=== PATIENT | male | born 1940 | race Caucasian/White ===

== ENCOUNTER 2016-10-08 10:45 | Observation (INO) | payer OTHER, BC ==
[~2016-10-08] VITALS: Ht 180.3 cm; Wt 84.5 kg
[2016-10-08 12:11] LABS: EOSINOPHIL (%) 2.2 % (0-5); EOSINOPHIL COUNT 0.1 K/uL (0-0.3); HEMATOCRIT 37.6 % (38.0-50.0); IMMATURE GRANULOCYTE (%) 0.4 % (0.0-0.7); INSTRUMENT ABS NEUTROPHIL CT 3.5 K/uL; LYMPHOCYTE COUNT 0.6 K/uL (1.0-2.8); MCH 31.7 PG (29.0-34.0); MCV 93.1 FL (86-99); MEAN PLAT.VOLUME 11.4 uM^3 (9.0-12.4); MONOCYTE (%) 6.9 % (3-12); MONOCYTE COUNT 0.3 K/uL (0-0.8); NEUTROPHIL COUNT 3.5 K/uL (1.8-6.4); PLATELET COUNT 111 K/uL (156-360); RBC DIS.WIDTH-CV 14.3 % (11.8-14.6); RBC DIS.WIDTH-SD 49.6 % (39-53); RED BLOOD COUNT 4.04 M/uL (4.00-5.50); WHITE BLOOD COUNT 4.5 K/uL (4.1-10.2)
[2016-10-08 12:17] LABS: INTER. NORMALIZED RATIO 1.3
[2016-10-08 12:33] LABS: CHLORIDE 106 mEq/L (99-109); POTASSIUM 4.1 mEq/L (3.7-5.4); SODIUM 136 mEq/L (136-147)
[2016-10-08 12:35] LABS: GLUCOSE 92 mg/dL (70-99)
[2016-10-08 12:36] LABS: ANION GAP 9 MEQ/L (2-14); TROP-I INTERPRETATION NEGATIVE; TROPONIN-I < 0.01 ng/mL (0.0-0.30)
[2016-10-08 12:37] LABS: TOTAL BILIRUBIN 1.5 mg/dL (0.0-1.0)
[2016-10-08 12:38] LABS: ALKALINE PHOSPHATASE 125 IU/L (3-129)
[2016-10-08 12:39] LABS: GFR ESTIMATE (CALCULATED) > 59 mL/min/
[2016-10-08 12:40] LABS: UREA NITROGEN (BUN) 19 mg/dL (9-23)
[2016-10-08 12:51] LABS: ADD MIUA? NO; BILIRUBIN NEGATIVE; BLOOD NEGATIVE; COLOR YELLOW ((YELLOW)); GLUCOSE (STRIP) NEGATIVE; KETONES NEGATIVE; LEUKOCYTES NEGATIVE; NITRITE NEGATIVE; PROTEIN (STRIP) NEGATIVE; SPECIFIC GRAVITY 1.009 (1.000-1.030); UCUL ADDED? NO; UROBILINOGEN 0.2 MG/DL (0.2-1.0)
[2016-10-08] MEDS ORDERED: METFORMIN HCL500 MG PO (15:14)
[2016-10-08] MEDS ORDERED: BUPROPION HCL150 M2 PO (15:14)
[2016-10-08] MEDS ORDERED: SPIRONOLACTONE50 MG PO (15:15)
[2016-10-08] MEDS ORDERED: FUROSEMIDE40 MG PO (15:15)
[2016-10-08] MEDS ORDERED: ESCITALOPRAM OX10 MG PO (15:16)
[2016-10-08] MEDS ORDERED: LEVOTHYROXINE75 MCG PO (15:16)
[2016-10-08] MEDS ORDERED: ASPIR-LOW81 MG PO (15:17)
[2016-10-08] MEDS ORDERED: METOPROLOL SUCC25 MG PO (15:17)
[2016-10-08] MEDS ORDERED: PLAVIX75 MG PO (15:17)
[2016-10-08 15:59] LABS: Estimated Average Glucose 103 mg/dL (70-123); HEMOGLOBIN A1c (GLYCOHEMOGLOB) 5.2 % HGB (Below 5.7)
[2016-10-08 20:57] VITALS: BP 106/58
[2016-10-08 20:58] VITALS: BP 75/39; BP 85/52
[2016-10-09] VITALS (8 sets, daily range): BP systolic 67–135; BP diastolic 41–75
[2016-10-09 06:57] LABS: POINT-OF-CARE METER ID UU13113725
[2016-10-09 09:06] LABS: HEMATOCRIT 36.4 % (38.0-50.0); MCH 32.1 PG (29.0-34.0); MCHC 34.3 G/DL (30.0-36.0); MCV 93.3 FL (86-99); PLATELET COUNT 116 K/uL (156-360); RBC DIS.WIDTH-CV 14.4 % (11.8-14.6); RBC DIS.WIDTH-SD 49.1 % (39-53)
[2016-10-09 09:31] LABS: ANION GAP 7 MEQ/L (2-14); CHLORIDE 105 MEQ/L (99-109); GFR ESTIMATE (CALCULATED) > 59 mL/min/; GLUCOSE 136 mg/dL (70-99); POTASSIUM 3.5 MEQ/L (3.7-5.4); SAMPLE HEMOLYSIS CHECK 0; SAMPLE ICTERIC CHECK 0; SAMPLE LIPEMIA CHECK 0; SODIUM 135 MEQ/L (136-147); UREA NITROGEN (BUN) 18 mg/dL (9-23)
[2016-10-09] MEDS ORDERED: Chronulac,Cephulac,E PO (12:20)
== END 2016-10-09 13:27 | disposition home or self-care (01) ==
LOC: EME 10:45 → 5EAST 14:41 → EDOF 14:41 → ENRESERV 14:47 → 5EAST 16:19
PROVIDERS: Emergency Medicine; Hospitalist
DX: R53.1 Weakness (principal); K74.60 Unspecified cirrhosis of liver; E11.9 Type 2 diabetes mellitus without complications; I10 Essential (primary) hypertension; I25.10 Atherosclerotic heart disease of native coronary artery without angina pectoris; Z95.5 Presence of coronary angioplasty implant and graft; L40.50 Arthropathic psoriasis, unspecified; Z82.49 Family history of ischemic heart disease and other diseases of the circulatory system; Z88.1 Allergy status to other antibiotic agents; Z88.2 Allergy status to sulfonamides; Z88.8 Allergy status to other drugs, medicaments and biological substances; Z87.891 Personal history of nicotine dependence
CPT/HCPCS: 71010; 80048; 80053; 81003; 82140; 82948; 83036; 84484; 85025; 85027; 85610; 85730; 93005; 99281; 99285; G0378; G8987 GO CJ; G8988 CI; J1815; J7030

== ENCOUNTER 2017-01-04 05:37 | Emergency (ER) | payer OTHER, BC ==
[~2017-01-04] VITALS: Ht 177.8 cm; Wt 92.6 kg
[~2017-01-04 05:37] MED LIST: ASPIR-LOW81 MG PO; BUPROPION HCL150 M2 PO; Chronulac,Cephulac,E PO; ESCITALOPRAM OX10 MG PO; FUROSEMIDE40 MG PO; LEVOTHYROXINE75 MCG PO; METFORMIN HCL500 MG PO; METOPROLOL SUCC25 MG PO; PLAVIX75 MG PO; SPIRONOLACTONE50 MG PO
[2017-01-04 08:49] VITALS: BP 112/88
[2017-01-04] MEDS ORDERED: ULTRAM50 MG PO (08:57)
[2017-01-04] MEDS ORDERED: URSODIOL300 MG PO (09:02)
[2017-01-04] MEDS ORDERED: LASIX40 MG PO (09:02)
[2017-01-04] MEDS ORDERED: PROTONIX40 MG PO (09:03)
[2017-01-04] MEDS ORDERED: SPIRONOLACTONE25 MG PO (09:04)
[2017-01-04] MEDS ORDERED: PROMETHAZINE HC25 M1 PO (09:05)
== END 2017-01-04 09:15 | disposition home or self-care (01) ==
LOC: EME → EDBD 05:37 → EME 09:15
DX: S01.01XA Laceration without foreign body of scalp, initial encounter (principal); W01.198A Fall on same level from slipping, tripping and stumbling with subsequent striking against other object, initial encounter; Z23 Encounter for immunization; K21.9 Gastro-esophageal reflux disease without esophagitis; I10 Essential (primary) hypertension; F41.9 Anxiety disorder, unspecified; F32.9 Major depressive disorder, single episode, unspecified; Z85.9 Personal history of malignant neoplasm, unspecified; Z79.82 Long term (current) use of aspirin; Z88.2 Allergy status to sulfonamides; Z88.1 Allergy status to other antibiotic agents; Z87.891 Personal history of nicotine dependence
CPT/HCPCS: 70450; 72125; 99281; 99284